=== PATIENT | male | born 1950 | race Caucasian/White ===

== ENCOUNTER 2024-06-15 01:38 | Inpatient (IN) | payer MEDICARE, MEDICAID ==
[~2024-06-15] VITALS: Ht 177.8 cm; Wt 74.4 kg
[2024-06-15] VITALS (7 sets, daily range): BP systolic 115–139; BP diastolic 67–68; PULSE 91–111; RESP 13–18; TEMP 98.2–98.5; O2SAT 93–95
[~2024-06-15 01:38] MED LIST: ATOR20TA50 PO; DULO1CAP6 PO; FURO20TA4 PO; METO25TA93 PO; OMEP20TA69 PO
--- NOTE | 2024-06-15 02:05 | ED.PDOC ---
GI ASSESSMENT HPI Comments 73-year-old male who came to ER via EMS for abdominal pain. Patient does have history of diabetes. Patient states that he having lower abdominal pain, he is constipated, last bowel movement was over 2 days ago. Also complaining of inability to urinate. No laxatives taken. Lower abdominal pain in inability to pass stools prompted patient to come to the emergency room. Chief Complaint: Abdominal Pain Time Seen by MD: 02:05 Primary Care Provider: CRISTÓBAL Edwards Notes: Nurses Notes Allergies: Coded Allergies: Clindamycin (Unverified Allergy, Unknown, 07/27/23) Sulfamethoxazole w/Trimethoprim (Unverified Allergy, Unknown, 07/27/23) Vancomycin (Unverified Allergy, Unknown, 07/27/23) Home Meds Reported Medications Omeprazole (Gnp Omeprazole) 20 Mg Tab, 40 TAB PO DAILY 07/27/23 Duloxetine HCl (Duloxetine HCl) 60 Mg Cap, 1 CAP PO DAILY 07/27/23 Atorvastatin Calcium (ATORVASTATIN CALCIUM) 20 Mg Tab, 1 TAB PO DAILY 07/27/23 Furosemide (Furosemide) 20 Mg Tab, 1 TAB PO DAILY 07/27/23 Metoprolol Succinate (Metoprolol Succinate Er) 25 Mg Tab, 1 TAB PO DAILY 07/27/23 Information Source: Patient, Emergency Med Personnel Mode of Arrival: EMS Timing: Days Duration: Since onset Prehospital treatment: None Quality: Aching Vomitus: None Stool: Impaction Severity: Moderate Recent: None Recent Hx of: None Pain Location: Suprapubic Associated sign and symptoms: Constipation, Abdominal Pain Past Medical History PAST MEDICAL HISTORY: CHF, DM Surgical History: AKA Surgical History (Other): Left foot amputation Family History Family History: Reviewed,noncontributory to illness Social History Smoker: Non-Smoker Alcohol: Denies ETOH Use Drugs: Denies Drug Use Lives In: Home Constitutional: denies: chills, diaphoresis, fatigue, fever, malaise, sweats, weakness, others EENTM: denies: blurred vision, double vision, ear bleeding, ear discharge, ear drainage, ear pain, ear ringing, eye pain, eye redness, hearing loss, mouth pain, mouth swelling, nasal discharge, nose bleeding, nose congestion, nose pain, photophobia, tearing, throat pain, throat swelling, voice changes, others Respiratory: denies: cough, hemoptysis, orthopnea, SOB at rest, shortness of breath, SOB with excertion, stridor, wheezing, others Cardiovascular: denies: chest pain, dizzy spells, diaphoresis, Dyspnea on exertion, edema, irregular heart beat, left arm pain, lightheadedness, palpitations, PND, syncope, others Gastrointestinal: reports: abdominal pain, constipated; denies: abdomen distended, blood streaked bowels, diarrhea, dysphagia, difficulty swallowing, hematemesis, melena, nausea, poor appetite, poor fluid intake, rectal bleeding, rectal pain, vomiting, others Genitourinary: denies: burning, dysuria, flank pain, frequency, hematuria, incontinence, penile discharge, penile sore, pain, testicle pain, testicle swelling, urgency, others Neurological: denies: dizziness, fainting, headache, left sided numbness, left sided weakness, numbness, paresthesia, pre-existing deficit, right sided numbness, right sided weakness, seizure, speech problems, tingling, tremors, weakness, others Musculoskeletal: denies: back pain, gout, joint pain, joint swelling, muscle pain, muscle stiffness, neck pain, others Integumetry: denies: bruises, change in color, change in hair/nails, dryness, laceration, lesions, lumps, rash, wounds, others Allergic/Immunocompromised: denies: Difficulty Healing, Frequent Infections, Hives, Itching, others Hematologic/Lymphatic: denies: anemia, blood clots, easy bleeding, easy bruising, swollen glands, others Endocrine: denies: excessive hunger, excessive sweating, excessive thirst, excessive urination, flushing, intolerance to cold, intolerance to heat, unexplained weight gain, unexplained weight loss, others Psychiatric: denies: anxiety, bipolar disorder, depression, hopeless, panic disorder, schizophrenia, sleepless, suicidal, others Physical Exam General Appearance: No Apparent Distress, Normal HEENT: Normal ENT Inspection, Pharynx Normal, TMs Normal Neck: Full Range of Motion, Non-Tender, Normal, Normal Inspection Respiratory: Chest Non-Tender, Lungs Clear, No Accessory Muscle Use, No Respiratory Distress, Normal Breath Sounds Cardiovascular: No Edema, No JVD, No Murmur, No Gallop, Normal Peripheral Pulses, Regular Rate/Rhythm Breast Exam: Deferred Gastrointestinal: No Organomegaly, No Pulsatile Mass, Normal Bowel Sounds, Soft, Suprapubic, Tenderness Genitalia: Deferred Pelvic: Deferred Rectal: Deferred Extremities: No calf tenderness, Normal capillary refill, Normal inspection, Normal range of motion, Non-tender, No pedal edema Musculoskeletal : Apperance: Normal Neurologic: Alert, instructional consultant II-XII nml as Tested, No Motor Deficits, Normal Affect, Normal Mood, No Sensory Deficits Cerebellar Function: Normal Reflexes: Normal Skin: Dry, Normal Color, Warm Lymphatic: No Adenopathy Was a procedure done? Was a procedure done?: No GI differential Dx Differential Diagnosis: Cholecystitis, Constipation, Diverticular disease, Gastritis/PUD, Gastroenteritis, Pancreatitis, Urinary Obstruction, UTI, Urolithiasis, Dehydration, Impaction X-Ray, Labs, Meds, VS Vital Signs Date Time Temp Pulse Resp B/P (MAP) Pulse Ox O2 Delivery O2 Flow Rate FiO2 06/15/24 03:29 98.0 94 18 127/61 (83) 96 98.0 06/15/24 01:38 98.2 104 18 141/81 (101) 97 Lab Test 06/15/24 02:03 Range/Units Urine Color Light-yellow Yellow Urine Clarity Turbid H Clear Urine pH 5.5 5.0-9.0 Urine Specific [place] 1.017 1.001-1.035 Urine Protein Trace H Negative Urine Ketones Negative Negative Urine Blood 1+ H Negative /uL Urine Nitrite Negative Negative Urine Bilirubin Negative Negative Urine Urobilinogen Normal Negative mg/dL Urine Leukocyte Esterase 3+ Negative /uL Urine RBC 3 0 - 3 /hpf Urine WBC 508 0 - 3 /hpf Urine Squamous Epithelial Cells None seen <5 /hpf Urine Bacteria None seen None Seen /hpf Urine Glucose 1+ H Normal mg/dL Current Medications Medications (Trade) Dose Ordered Sig/Braeden Route Start Time Stop Time Status Last Admin Sodium Biphosphate/ Sodium Phosphate 135 ml ONCE ONCE MO 06/15/24 03:45 06/15/24 03:46 DC 06/15/24 04:02 Time of 1ST Reevaluation: 02:01 Reevaluation 1ST: Unchanged Patient Education/Counseling: Diagnosis, Treatment Family Education/Counseling: No Family Present Departure 1 Departure Time of Disposition: 04:06 (Patient with acute urinary retention and an infection. We will admit patient for IV antibiotics and further workup) Impression: Primary Impression: Urinary tract infection Qualified Codes: N30.01 - Acute cystitis with hematuria Additional Impressions: Acute urinary retention Constipation Qualified Codes: K59.09 - Other constipation Abdominal pain Qualified Codes: R10.84 - Generalized abdominal pain Disposition: ADMITTED INPATIENT Admit to: Med Surg Condition: Serious Critical Care Note Critical Care Time?: Yes (35 min-critical care time only) Stability Stability form required: No Heart Score Heart Score: Heart Score Response (Comments) Value History N/A 0 EKG N/A 0 Age N/A 0 Risk Factors N/A 0 Troponin N/A 0 Total 0 I personally scribed for SUE SHAW MD ([email or web address]) on 06/15/24 at 02:05. Electronically submitted by Trevin Hart ([email or web address]). SUE SHAW MD Jun 15, 2024 02:05
[2024-06-15 02:57] LABS: Urine Bacteria None Seen /hpf (None Seen)
[2024-06-15 03:21] LABS: Urine Blood 1+ /uL (Negative); Urine Clarity Turbid (Clear); Urine Color Light-Yellow (Yellow); Urine Protein, UAD TRACE (Negative); Urine Specific Gravity 1.017 (1.001-1.035); Urine Urobilinogen Normal (Negative); Urine WBC 508 /hpf (0 - 3); Urine pH 5.5 (5.0-9.0)
[2024-06-15] MEDS: FLEET ENEMA(ADULT) 135 ML PR ONE (04:02)
[2024-06-15 04:56] LABS: Basophils # (auto) 0.1 10 ^3/uL (0-0.2); Basophils % (auto) 0.6 % (0.0-2.0); Eosinophils # (auto) 0.2 10 ^3/uL (0-0.8); Eosinophils % (auto) 1.3 % (0.0-7.0); Hematocrit 33.4 % (41.0-53.0); Hemoglobin 11.2 g/dL (13.5-17.5); Lymphocytes # (auto) 2.2 10 ^3/uL (0.4-5.4); Lymphocytes % (auto) 14.5 % (10.0-50.0); Mean Corpuscular Hgb Conc. 33.6 g/dL (32.0-36.0); Mean Corpuscular Volume 77.4 fL (80.0-100.0); Monocytes % (auto) 6.4 % (0.0-12.0); Neutrophils # (auto) 11.6 10 ^3/uL (1.6-8.6); Neutrophils % (auto) 77.2 % (37.0-80.0); Nucleated Red Blood Cells % 0.3 %; Platelet Count (auto) 197 10^3/uL (140-450); Red Blood Cells 4.31 10^6/uL (4.5-5.90); Red Cell Distribution Width 19.2 % (11.8-14.3)
[2024-06-15] MEDS: CEFEPIME 2GM/50ML NS 50 ML IV ONE (05:14)
[2024-06-15 05:31] LABS: Chloride 107 mmol/L (98-107); Potassium 4.6 mmol/L (3.5-5.1); Sodium 139 mmol/L (136-145)
[2024-06-15 05:32] LABS: Anion Gap 10 (5-15); Carbon Dioxide 22 mmol/L (20-31)
[2024-06-15 05:37] LABS: Blood Urea Nitrogen 54 mg/dL (9-23); Glucose 165 mg/dL (74-106)
--- NOTE | 2024-06-15 06:22 | DVHHP2 ---
History of Present Illness Reason for Visit: Urinary tract infection History of Present Illness The patient is a 73-year-old male with past medical history of CHF and diabetes mellitus who presented to [facility] ED with complaint of abdominal pain. Patient reports symptoms progressively get worse with lower abdominal pain, unable to have bowel movement over the past 2 days, and inability to urinate, getting worse today that prompted this visit. Patient was seen and evaluated in the ED, laboratory data shows elevated WBC 15 0, platelets 197, sodium 139, potassium 4.6, BUN 54, creatinine 1.15, GFR 67, glucose 165. Urinalysis positive for urinary tract infection. Patient was started on IV ant ibiotic regimen cefepime, please see medication orders section in the computer. On my assessment, patient denied chest pain, no headache, no dizziness, no diaphoresis, no shortness of breath, no nausea, vomiting, no fever, no chills. Patient was admitted for further evaluation and medical management. Past Medical History CHF, DM Past Surgical History Right AKA, Left foot amputation Family History Reviewed, noncontributory to the management of this case. Past Social History The patient lives at home, denies smoking, alcohol or illicit drugs abuse. Review of Systems Constitutional: No: Fever, Chills, Sweats, Weakness, Malaise, Other Eyes: No: Pain, Vision change, Conjunctivae inflammation, Eyelid inflammation, Other, Redness ENT: No: Ear pain, Ear discharge, Nose pain, Nose discharge, Nose congestion, Mouth pain, Mouth swelling, Throat pain, Throat swelling, Other Respiratory: No: Cough, Dry, Shortness of breath, SOB with excertion, Wheezing, Hemoptysis, Pleuritic Pain, Sputum, Wheezing, Other Cardiovascular: No: Chest Pain, Palpitations, Orthopnea, Paroxysmal Noc. Dyspnea, Edema, Lt Headedness, Other Gastrointestinal: Abdominal Pain, Constipation; No: Nausea, Vomiting, Diarrhea, Melena, Hematochezia, Other Genitourinary: No Dysuria, No Frequency, No Incontinence, No Hematuria; Retention, Other (Ohara catheter in place) Musculoskeletal: No: other, neck pain, shoulder pain, arm pain, back pain, hand pain, leg pain, foot pain Skin: No: Rash, Lesions, Jaundice, Bruising, Other Neurological: No: Weakness, Numbness, Incoordination, Change in speech, Confusion, Seizures, Other Allergies: Coded Allergies: Clindamycin (Unverified Allergy, Unknown, 07/27/23) Sulfamethoxazole w/Trimethoprim (Unverified Allergy, Unknown, 07/27/23) Vancomycin (Unverified Allergy, Unknown, 07/27/23) Exam Vital Signs Vital Signs Date Time Temp Pulse Resp B/P (MAP) Pulse Ox O2 Delivery O2 Flow Rate FiO2 06/15/24 03:29 98.0 94 18 127/61 (83) 96 98.0 General Appearance: Alert, Oriented X3, Cooperative, No acute distress HEENT: Atraumatic, PERRLA, EOMI, Mucous membr. moist/pink Respiratory: Clear to auscultation, Normal air movement Cardiovascular: Regular rate, Normal S1, Normal S2, No murmurs Abdominal: Normal bowel sounds, Soft, No tenderness, No hepatospenomegaly, No masses Extremities: No clubbing, No cyanosis, No edema, Normal pulses, No tenderness/swelling, Other (Right BKA, left toes amputation.) Skin: No rashes, No breakdown, No significant lesion Neuro: Normal speech, Normal tone, Sensation intact, Cranial nerves 3-12 NL, Reflexes 2+, Other (Generalized weakness) Psych/Mental Status: Mental status NL, Mood NL Labs/Xrays Labs Test 06/15/24 03:59 06/15/24 02:03 Range/Units White Blood Count 15.0 H 4.4-10.8 10^3/uL Red Blood Count 4.31 L 4.5-5.90 10^6/uL Hemoglobin 11.2 L 13.5-17.5 g/dL Hematocrit 33.4 L 41.0-53.0 % Mean Corpuscular Volume 77.4 L 80.0-100.0 fL Mean Corpuscular Hemoglobin 26.0 L 28.0-32.0 pg Mean Corpuscular Hemoglobin Concent 33.6 32.0-36.0 g/dL Red Cell Distribution Width 19.2 H 11.8-14.3 % Platelet Count 197 140-450 10^3/uL Mean Platelet Volume 7.9 6.9-10.8 fL Neutrophils (%) (Auto) 77.2 37.0-80.0 % Lymphocytes (%) (Auto) 14.5 10.0-50.0 % Monocytes (%) (Auto) 6.4 0.0-12.0 % Eosinophils (%) (Auto) 1.3 0.0-7.0 % Basophils (%) (Auto) 0.6 0.0-2.0 % Neutrophils # (Auto) 11.6 H 1.6-8.6 10 ^3/uL Lymphocytes # (Auto) 2.2 0.4-5.4 10 ^3/uL Monocytes # (Auto) 1.0 0-1.3 10 ^3/uL Eosinophils # (Auto) 0.2 0-0.8 10 ^3/uL Basophils # (Auto) 0.1 0-0.2 10 ^3/uL Nucleated Red Blood Cells 0.3 % Sodium Level 139 136-145 mmol/L Potassium Level 4.6 3.5-5.1 mmol/L Chloride Level 107 98-107 mmol/L Carbon Dioxide Level 22 20-31 mmol/L Anion Gap 10 5-15 Blood Urea Nitrogen 54 H 9-23 mg/dL Creatinine 1.15 0.700-1.30 mg/dL Glomerular Filtration Rate Calc 67 >90 mL/min BUN/Creatinine Ratio 47.0 H 10.0-20.0 Serum Glucose 165 H 74-106 mg/dL Calcium Level 9.0 8.7-10.4 mg/dL Urine Color Light-yellow Yellow Urine Clarity Turbid H Clear Urine pH 5.5 5.0-9.0 Urine Specific [place] 1.017 1.001-1.035 Urine Protein Trace H Negative Urine Ketones Negative Negative Urine Blood 1+ H Negative /uL Urine Nitrite Negative Negative Urine Bilirubin Negative Negative Urine Urobilinogen Normal Negative mg/dL Urine Leukocyte Esterase 3+ Negative /uL Urine RBC 3 0 - 3 /hpf Urine WBC 508 0 - 3 /hpf Urine Squamous Epithelial Cells None seen <5 /hpf Urine Bacteria None seen None Seen /hpf Urine Glucose 1+ H Normal mg/dL Assessment/Plan Assessment/Plan Urinary tract infection Acute cystitis with hematuria Acute urinary retention Constipation Leukocytosis, unspecified Lower abdominal pain Generalized abdominal pain Diabetes mellitus with hyperglycemia Plan 1. Admit to med surge unit 2. Breathing treatment 3. Pain control management 4. IV antibiotic management 5. Management of fluids and electrolytes 6. Consultation for hospitalist 7. Diagnostic test chest x-ray 8. DVT prophylaxis-on SCDs 9. Repeat labs CBC, CMP in a.m. 10. Home medication reviewed and reconciled 11. Continue with current medical management 12. Treatment plan discussed with patient and RN. Patient verbalized understanding. Plan discussed with: Patient, Other (RN) Problem List: (1) Urinary tract infection (2) Generalized abdominal pain (3) Leukocytosis, unspecified (4) Lower abdominal pain (5) Constipation (6) Acute urinary retention (7) Diabetes mellitus with hyperglycemia (8) Acute cystitis with hematuria Date of Service: Jun 15, 2024 Billing Provider: TJ ABDI DNP Common Visit Codes: [id number] INP/OBS CARE (HIGH) TJ ABDI DNP Jun 15, 2024 06:22
[2024-06-15] MEDS ORDERED: ONDANSETRON HCL 4 MG/2 ML VIAL IV PRN (06:30)
[2024-06-15] MEDS ORDERED: DOCUSATE SOD 100 MG CAP PO PRN (06:30)
[2024-06-15] MEDS ORDERED: NITROGLYCERIN 0.4 MG SL TAB SL PRN (06:30)
[2024-06-15] MEDS ORDERED: MORPHINE SULFATE INJ 2 MG/ml SYRG IV PRN (06:30)
[2024-06-15] MEDS ORDERED: DEXTROSE (50%) 50ML SYRG IV PRN (06:30)
[2024-06-15] MEDS ORDERED: HYDROcodone-ACET 5/325MG TAB PO PRN (06:30)
[2024-06-15] MEDS: ACCU-CHEK COMFORT CURVE STRIP VI SCH (07:00)
--- NOTE | 2024-06-15 07:10 | ECG ---
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
[2024-06-15] MEDS: InsuLIN REG 1unit/0.01ml Soln (100units/ml) SC SCH ×2 (07:26→22:13)
[2024-06-15] MEDS: SODIUM CHLOR 0.9% PF (SALINE LOCK) 10ML VIAL/SYR IV SCH (14:05)
[2024-06-15] MEDS ORDERED: INSLANTI SC (18:58)
[2024-06-15] MEDS ORDERED: PANT40T PO (18:58)
[2024-06-15] MEDS ORDERED: ASPI-325 PO (18:58)
[2024-06-15] MEDS: CEFEPIME 1GM/ 50ML 50 ML IV SCH (21:56)
[2024-06-16] VITALS (8 sets, daily range): BP systolic 90–110; BP diastolic 47–61; PULSE 69–94; RESP 18–20; TEMP 97.8–98.7; O2SAT 92–95
[2024-06-16 05:11] LABS: Basophils # (auto) 0.1 10 ^3/uL (0-0.2); Mean Corpuscular Hgb Conc. 33.4 g/dL (32.0-36.0); Monocytes # (auto) 0.9 10 ^3/uL (0-1.3); Nucleated Red Blood Cells % 0.1 %
[2024-06-16 05:16] LABS: Basophils % (auto) 0.7 % (0.0-2.0); Eosinophils # (auto) 0.3 10 ^3/uL (0-0.8); Eosinophils % (auto) 2.3 % (0.0-7.0); Hematocrit 31.6 % (41.0-53.0); Hemoglobin 10.6 g/dL (13.5-17.5); Lymphocytes # (auto) 2.7 10 ^3/uL (0.4-5.4); Mean Corpuscular Hemoglobin 26.1 pg (28.0-32.0); Mean Corpuscular Volume 78.1 fL (80.0-100.0); Monocytes % (auto) 7.1 % (0.0-12.0); Neutrophils # (auto) 8.2 10 ^3/uL (1.6-8.6); Neutrophils % (auto) 67.9 % (37.0-80.0); Platelet Count (auto) 203 10^3/uL (140-450); Red Blood Cells 4.05 10^6/uL (4.5-5.90); Red Cell Distribution Width 19.7 % (11.8-14.3); White Blood Cell 12.1 10^3/uL (4.4-10.8)
[2024-06-16 05:23] LABS: Alanine Aminotransferase 28 U/L (7-40); Alkaline Phosphatase 111 U/L (46-116); Calcium 8.8 mg/dL (8.7-10.4)
[2024-06-16 05:24] LABS: Albumin 3.5 g/dL (3.2-4.8); Anion Gap 9 (5-15); Aspartate Aminotransferase 19 U/L (13-40); BUN/Creatinine Ratio 31.1 (10.0-20.0); Bilirubin, Total 0.3 mg/dL (0.2-1.0); Blood Urea Nitrogen 38 mg/dL (9-23); Carbon Dioxide 22 mmol/L (20-31); Chloride 109 mmol/L (98-107); Glucose 105 mg/dL (74-106); Potassium 3.6 mmol/L (3.5-5.1); Sodium 140 mmol/L (136-145); Total Protein 8.3 g/dL (5.7-8.2)
[2024-06-16] MEDS: ACETAMINOPHEN 325 MG TAB PO PRN (10:31)
--- NOTE | 2024-06-16 19:22 | DVHPN2 ---
Subjective looks rested/denies any prostate issues or h/o uti in past Changes from previous H/P or p: No Changes Eyes: No Pain, No Vision change, No Conjunctivae inflammation, No Eyelid inflammation, No Other, No Redness ENT: No Ear pain, No Ear discharge, No Nose pain, No Nose discharge, No Nose congestion, No Mouth pain, No Mouth swelling, No Throat pain, No Throat swelling, No Other Cardiovascular: No Chest Pain, No Palpitations, No Orthopnea, No Paroxysmal Noc. Dyspnea, No Edema, No Lt Headedness, No Other Respiratory: No Cough, No Dry, No Shortness of breath, No SOB with excertion, No Wheezing, No Hemoptysis, No Pleuritic Pain, No Sputum, No Other Gastrointestinal: No Nausea, No Vomiting; Abdominal Pain; No Diarrhea; C onstipation; No Melena, No Hematochezia, No Other Genitourinary: No Dysuria, No Frequency, No Incontinence, No Hematuria; R etention, Other (Ohara catheter in place) Musculoskeletal: No other, No neck pain, No shoulder pain, No arm pain, No back pain, No hand pain, No leg pain, No foot pain Skin: No Rash, No Lesions, No Jaundice, No Bruising, No Other Objective Vitals Vital Signs Date Time Temp Pulse Resp B/P (MAP) Pulse Ox O2 Delivery O2 Flow Rate FiO2 06/16/24 17:00 98.0 69 18 106/54 (71) 95 98.0 06/16/24 08:00 Room Air* 0 21 Intake/Output Intake and Output 06/16/24 07:00 Intake Total 1450 ml Output Total 2202 ml Balance -752 ml Intake Oral 1400 ml IV Total 50 ml Output Urine Total 2200 ml Stool Total 2 ml # Voids 2 # Bowel Movements 4 General Appearance: Alert, Oriented X3, Cooperative, No acute distress Lungs: Clear to auscultation Cardiovascular: Regular rate, Normal S1, Normal S2, No murmurs Abdomen: Normal bowel sounds, Soft, No tenderness, No hepatospenomegaly Musculoskeletal: Normal sensory function, Other (rt side aka/lt side -tmta) Neuro: Normal gait, Normal speech Medications Current Medications Medications Dose Ordered Sig/Braeden Route Start Time Stop Time Status Last Admin Dose Admin Cefepime HCl 50 ml @ 12.5 mls/hr Q12HR IV 06/15/24 22:00 06/16/24 10:29 12.5 MLS/HR Diagnostic Test (Pha) 1 strip ACHS 06/15/24 07:00 06/16/24 16:34 1 STRIP Insulin Human Regular HS SC 06/15/24 22:00 06/15/24 22:13 6 UNITS Insulin Human Regular AC SC 06/15/24 07:00 06/16/24 12:44 2 UNITS Dextrose 50 ml UD PRN IV 06/15/24 06:30 Sodium Chloride 10 ml Q8HR IV 06/15/24 14:00 06/16/24 16:32 10 ML Docusate Sodium 100 mg BIDPRN PRN PO 06/15/24 06:30 Acetaminophen 650 mg Q6HP PRN PO 06/15/24 06:30 06/16/24 17:21 650 MG Linezolid 300 ml @ 150 mls/hr Q12HR IV 06/16/24 19:00 Laboratory Results Laboratory Tests 06/16/24 04:21 Chemistry Test 06/16/24 04:21 Albumin 3.5 g/dL (3.2-4.8) Calcium Level 8.8 mg/dL (8.7-10.4) Total Protein 8.3 g/dL (5.7-8.2) H LFT Test 06/16/24 04:21 Alanine Aminotransferase (ALT) 28 U/L (7-40) Alkaline Phosphatase 111 U/L (46-116) Aspartate Amino Transferase (AST) 19 U/L (13-40) Total Bilirubin 0.3 mg/dL (0.2-1.0) Urinalysis Test 06/15/24 02:03 Urine Color Light-yellow (Yellow) Urine Clarity Turbid (Clear) H Urine pH 5.5 (5.0-9.0) Urine Specific [place] 1.017 (1.001-1.035) Urine Protein Trace (Negative) H Urine Ketones Negative (Negative) Urine Blood 1+ /uL (Negative) H Urine Nitrite Negative (Negative) Urine Bilirubin Negative (Negative) Urine Urobilinogen Normal mg/dL (Negative) Urine Leukocyte Esterase 3+ /uL (Negative) Urine RBC 3 /hpf (0 - 3) Urine WBC 508 /hpf (0 - 3) Urine Squamous Epithelial Cells None seen /hpf (<5) Urine Bacteria None seen /hpf (None Seen) Urine Glucose 1+ mg/dL (Normal) H Microbiology Microbiology Date/Time Source Procedure Growth Status 06/15/24 09:51 Blood Blood Culture - Preliminary NO GROWTH AFTER 24 HOURS OF INCUBATION. Resulted 06/15/24 02:03 Voided Urine Urine Culture - Preliminary Resulted Labs and/or images reviewed: Labs reviewed by me, Image(s) reviewed by me Assessment/Plan Assessment/Plan staph uti/complicated uti- awaiting sensitivity treat ?bph add flomax constipation resolved rt akalt transmetatarsal amputation- f/by /has weekly appt dm stable amemia- stable/no active bleeding Plan discussed with: Patient, Other My Orders Orders - MIGUEL A MARY MD Procedure Category Date Status Time Linezolid 600mg/300ml PHA 06/16/24 In Process (Zyvox) 19:00 Date of Service: Jun 16, 2024 Billing Provider: MIGUEL A MARY MD Common Visit Codes: [id number] INP/OBS CARE(MOD) MIGUEL A MARY MD Jun 16, 2024 19:22
[2024-06-16] MEDS: LINEZOLID 600MG/300ML 300 ML IV SCH (21:07)
[2024-06-17] VITALS (7 sets, daily range): BP systolic 104–124; BP diastolic 55–70; PULSE 68–77; RESP 17–20; TEMP 97.5–98.4; O2SAT 91–96
[2024-06-17 06:34] LABS: Basophils # (auto) 0.1 10 ^3/uL (0-0.2); Eosinophils # (auto) 0.5 10 ^3/uL (0-0.8); Hemoglobin 10.9 g/dL (13.5-17.5); Monocytes # (auto) 0.7 10 ^3/uL (0-1.3); Nucleated Red Blood Cells % 0.1 %; White Blood Cell 9.7 10^3/uL (4.4-10.8)
[2024-06-17 06:37] LABS: Basophils % (auto) 0.9 % (0.0-2.0); Eosinophils % (auto) 5.1 % (0.0-7.0); Hematocrit 32.6 % (41.0-53.0); Lymphocytes % (auto) 31.4 % (10.0-50.0); Mean Corpuscular Hemoglobin 26.5 pg (28.0-32.0); Mean Corpuscular Hgb Conc. 33.5 g/dL (32.0-36.0); Monocytes % (auto) 7.4 % (0.0-12.0); Neutrophils # (auto) 5.3 10 ^3/uL (1.6-8.6); Neutrophils % (auto) 55.2 % (37.0-80.0); Platelet Count (auto) 212 10^3/uL (140-450); Red Blood Cells 4.13 10^6/uL (4.5-5.90); Red Cell Distribution Width 19.7 % (11.8-14.3)
--- NOTE | 2024-06-17 11:28 | DVHPN2 ---
Subjective 73-year-old male with a history of diabetes and heart failure, comes with chief complaint of abdominal pain and urinary retention where he says he could not urinate or have a bowel movement Here had a Ohara catheter inserted and a UA in the urine culture showed UTI with Staph aureus MRSA He has a chronic wound on his left leg, he goes to Dr. Ghosh, he has a left foot partial amputation, he has a right [id number] amputation Changes from previous H/P or p: Changes Eyes: No Pain, No Vision change, No Conjunctivae inflammation, No Eyelid inflammation, No Other, No Redness ENT: No Ear pain, No Ear discharge, No Nose pain, No Nose discharge, No Nose congestion, No Mouth pain, No Mouth swelling, No Throat pain, No Throat swelling, No Other Cardiovascular: No Chest Pain, No Palpitations, No Orthopnea, No Paroxysmal Noc. Dyspnea, No Edema, No Lt Headedness, No Other Respiratory: No Cough, No Dry, No Shortness of breath, No SOB with excertion, No Wheezing, No Hemoptysis, No Pleuritic Pain, No Sputum, No Other Gastrointestinal: No Nausea, No Vomiting; Abdominal Pain; No Diarrhea; C onstipation; No Melena, No Hematochezia, No Other Genitourinary: No Dysuria, No Frequency, No Incontinence, No Hematuria; R etention, Other (Ohara catheter in place) Musculoskeletal: No other, No neck pain, No shoulder pain, No arm pain, No back pain, No hand pain, No leg pain, No foot pain Skin: No Rash, No Lesions, No Jaundice, No Bruising, No Other Objective Vitals Vital Signs Date Time Temp Pulse Resp B/P (MAP) Pulse Ox O2 Delivery O2 Flow Rate FiO2 06/17/24 09:00 97.9 76 18 114/66 (82) 91 97.9 06/17/24 08:00 Room Air* 0 21 Intake/Output Intake and Output 06/17/24 07:00 Intake Total 1400 ml Output Total 1150 ml Balance 250 ml Intake Oral 1000 ml IV Total 400 ml Output Urine Total 1150 ml # Bowel Movements 2 General Appearance: Alert, Oriented X3, Cooperative, No acute distress Lungs: Clear to auscultation Cardiovascular: Regular rate, Normal S1, Normal S2, No murmurs Abdomen: Normal bowel sounds, Soft, No tenderness, No hepatospenomegaly Musculoskeletal: Normal sensory function, Other (rt side aka/lt side -tmta) Neuro: Normal gait, Normal speech Medications Current Medications Medications Dose Ordered Sig/Braeden Route Start Time Stop Time Status Last Admin Dose Admin Cefepime HCl 50 ml @ 12.5 mls/hr Q12HR IV 06/15/24 22:00 06/17/24 10:24 12.5 MLS/HR Diagnostic Test (Pha) 1 strip ACHS 06/15/24 07:00 06/17/24 11:22 1 STRIP Insulin Human Regular HS SC 06/15/24 22:00 06/16/24 22:37 4 UNITS Insulin Human Regular AC SC 06/15/24 07:00 06/16/24 12:44 2 UNITS Dextrose 50 ml UD PRN IV 06/15/24 06:30 Sodium Chloride 10 ml Q8HR IV 06/15/24 14:00 06/17/24 06:15 10 ML Docusate Sodium 100 mg BIDPRN PRN PO 06/15/24 06:30 Acetaminophen 650 mg Q6HP PRN PO 06/15/24 06:30 06/16/24 17:21 650 MG Linezolid 300 ml @ 150 mls/hr Q12HR IV 06/16/24 19:00 06/17/24 10:25 150 MLS/HR Laboratory Results Laboratory Tests 06/16/24 04:21 06/17/24 05:27 Urinalysis Test 06/15/24 02:03 Urine Color Light-yellow (Yellow) Urine Clarity Turbid (Clear) H Urine pH 5.5 (5.0-9.0) Urine Specific [place] 1.017 (1.001-1.035) Urine Protein Trace (Negative) H Urine Ketones Negative (Negative) Urine Blood 1+ /uL (Negative) H Urine Nitrite Negative (Negative) Urine Bilirubin Negative (Negative) Urine Urobilinogen Normal mg/dL (Negative) Urine Leukocyte Esterase 3+ /uL (Negative) Urine RBC 3 /hpf (0 - 3) Urine WBC 508 /hpf (0 - 3) Urine Squamous Epithelial Cells None seen /hpf (<5) Urine Bacteria None seen /hpf (None Seen) Urine Glucose 1+ mg/dL (Normal) H Microbiology Microbiology Date/Time Source Procedure Growth Status 06/15/24 09:51 Blood Blood Culture - Preliminary NO GROWTH AFTER 48 HOURS OF INCUBATION. 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 Ghosh Plan discussed with: Patient Date of Service: Jun 17, 2024 Billing Provider: DONNELL LARA MD Common Visit Codes: [id number] INP/OBS CARE(HIGH) Secondary Visit Codes: [id number] CARE PLAN 30 MINUTES DONNELL LARA MD Jun 17, 2024 11:28
[2024-06-17] MEDS ORDERED: ONDANSETRON HCL 4 MG/2 ML VIAL IV PRN (11:45)
[2024-06-17] MEDS: ASPirin 81 mg TAB PO ONE (12:00)
[2024-06-17] MEDS: PANTOPRAZOLE 40 MG TAB PO ONE (12:00)
[2024-06-17] MEDS: DULoxetine HCL 30 MG CAP PO ONE (12:01)
--- NOTE | 2024-06-17 15:42 | DVHSR ---
APPROVED REPORT EXAM: Two-dimensional and M-mode echocardiogram with Doppler and color Doppler. Blood Pressure: 114/66 mmHg INDICATION Sepsis RISK FACTORS Height: 5'10", Weight: 160 DIMENSIONS LVDd5.3 (3.8-5.7cm)LA (2D)3.6 (1.9-4.0cm)Aortic Root3.3 (2.0-3.7cm) LVDs4.1 (2.5-4.0cm)LA (MM) (1.9-4.0cm)Aortic Cusp Exc0.9 (1.5-2.0cm) EF (%) 45.0 (55-70%)Rt. Atrium (1.9-4.0cm)Asc. Aorta cm IVSd1.0 (0.7-1.1cm)RV (D) (1.8-2.4cm) PWd0.9 (0.7-1.1cm) Mitral Valve MitralMitral Stenosis E wave0.46m/sMV Mean GR.mmHg A wave0.72m/sMV Peak GR.mmHg E/A ratio0.62D MVAcm2 DECEL [id number] 1/2 Timems Aortic Valve Aortic ValveAortic Stenosis V10.67m/Naz Mean GR.4mmHg V21.25m/Naz Peak GR.6mmHg LVOT Diameter2.0 (1.8-2.4cm)Doppler AVA1.68cm2 2D AVA1.89cm2 Tricuspid Valve TR Velocity1.20m/s [id number] Other Information Quality : Technically LimitedRhythm : Technically limited study due to body habitus. Conclusion Normal left ventricular size and dimension. Mildly reduced left ventricular systolic function estima gloria ejection fraction 45% in a global fashion.. There is a grade 1 diastolic dysfunction. Normal right ventricular size and dimension. Normal right ventricular systolic function. Normal biatrial size and dimension. Normal aortic valve structure and function with a mild aortic valve sclerosis and calcification. Normal mitral valve structure and function. Normal tricuspid valve structure and function. The pulmonary valve is grossly normal. No pericardial effusion.
[2024-06-17] MEDS: ATORVASTATIN 20 MG TAB PO SCH (21:24)
[2024-06-17] MEDS: INSULIN LANTUS (GLARGINE) 1 /0.01ml (100units/ml) SC SCH (22:21)
[2024-06-18 01:00] VITALS: BP 94/45; PULSE 75; RESP 18; TEMP 98.1; O2SAT 94
[2024-06-18] MEDS: CEFEPIME 1GM/ 50ML 50 ML IV SCH (01:30)
[2024-06-18 05:00] VITALS: BP 129/60; PULSE 77; RESP 18; TEMP 97.9; O2SAT 92
[2024-06-18] MEDS: PANTOPRAZOLE 40 MG TAB PO SCH (05:19)
[2024-06-18 09:00] VITALS: BP 101/57; PULSE 72; RESP 17; TEMP 97.7; O2SAT 95
[2024-06-18] MEDS: DULoxetine HCL 30 MG CAP PO SCH (10:23)
[2024-06-18] MEDS: ASPirin 81 mg TAB PO SCH (10:24)
--- NOTE | 2024-06-18 11:15 | DVHPN2 ---
Subjective No new complaints Changes from previous H/P or p: Changes Eyes: No Pain, No Vision change, No Conjunctivae inflammation, No Eyelid inflammation, No Other, No Redness ENT: No Ear pain, No Ear discharge, No Nose pain, No Nose discharge, No Nose congestion, No Mouth pain, No Mouth swelling, No Throat pain, No Throat swelling, No Other Cardiovascular: No Chest Pain, No Palpitations, No Orthopnea, No Paroxysmal Noc. Dyspnea, No Edema, No Lt Headedness, No Other Respiratory: No Cough, No Dry, No Shortness of breath, No SOB with excertion, No Wheezing, No Hemoptysis, No Pleuritic Pain, No Sputum, No Other Gastrointestinal: No Nausea, No Vomiting; Abdominal Pain; No Diarrhea; C onstipation; No Melena, No Hematochezia, No Other Genitourinary: No Dysuria, No Frequency, No Incontinence, No Hematuria; R etention, Other (Ohara catheter in place) Musculoskeletal: No other, No neck pain, No shoulder pain, No arm pain, No back pain, No hand pain, No leg pain, No foot pain Skin: No Rash, No Lesions, No Jaundice, No Bruising, No Other Objective Vitals Vital Signs Date Time Temp Pulse Resp B/P (MAP) Pulse Ox O2 Delivery O2 Flow Rate FiO2 06/18/24 09:00 97.7 72 17 101/57 (72) 95 97.7 06/18/24 08:00 Room Air* 0 21 Intake/Output Intake and Output 06/18/24 07:00 Intake Total 1624 ml Output Total 1100 ml Balance 524 ml Intake Oral 1274 ml IV Total 350 ml Output Urine Total 1100 ml # Voids 7 # Bowel Movements 2 General Appearance: Alert, Oriented X3, Cooperative, No acute distress Lungs: Clear to auscultation Cardiovascular: Regular rate, Normal S1, Normal S2, No murmurs Abdomen: Normal bowel sounds, Soft, No tenderness, No hepatospenomegaly Musculoskeletal: Normal sensory function, Other (rt side aka/lt side -tmta) Neuro: Normal gait, Normal speech Medications Current Medications Medications Dose Ordered Sig/Braeden Route Start Time Stop Time Status Last Admin Dose Admin Diagnostic Test (Pha) 1 strip ACHS 06/15/24 07:00 06/18/24 11:08 1 STRIP Insulin Human Regular HS SC 06/15/24 22:00 06/17/24 22:22 2 UNITS Insulin Human Regular AC SC 06/15/24 07:00 06/18/24 06:26 3 UNITS Dextrose 50 ml UD PRN IV 06/15/24 06:30 Sodium Chloride 10 ml Q8HR IV 06/15/24 14:00 06/18/24 05:19 10 ML Docusate Sodium 100 mg BIDPRN PRN PO 06/15/24 06:30 Acetaminophen 650 mg Q6HP PRN PO 06/15/24 06:30 06/16/24 17:21 650 MG Linezolid 300 ml @ 150 mls/hr Q12HR IV 06/16/24 19:00 06/18/24 10:24 150 MLS/HR Duloxetine HCl 60 mg DAILY PO 06/18/24 10:00 06/18/24 10:23 60 MG Insulin Glargine 20 units BID@0700,2200 SC 06/17/24 22:00 06/18/24 06:25 20 UNITS Ondansetron HCl 4 mg Q4HPRN PRN IV 06/17/24 11:45 Aspirin 81 mg DAILY PO 06/18/24 10:00 06/18/24 10:24 81 MG Pantoprazole Sodium 40 mg DAILY@0600 PO 06/18/24 06:00 06/18/24 05:19 40 MG Atorvastatin Calcium 20 mg HS PO 06/17/24 22:00 06/17/24 21:24 20 MG Cefepime HCl 50 ml @ 12.5 mls/hr Q12H IV 06/18/24 01:00 06/18/24 01:30 12.5 MLS/HR Laboratory Results Laboratory Tests 06/16/24 04:21 06/17/24 05:27 Urinalysis Test 06/15/24 02:03 Urine Color Light-yellow (Yellow) Urine Clarity Turbid (Clear) H Urine pH 5.5 (5.0-9.0) Urine Specific [place] 1.017 (1.001-1.035) Urine Protein Trace (Negative) H Urine Ketones Negative (Negative) Urine Blood 1+ /uL (Negative) H Urine Nitrite Negative (Negative) Urine Bilirubin Negative (Negative) Urine Urobilinogen Normal mg/dL (Negative) Urine Leukocyte Esterase 3+ /uL (Negative) Urine RBC 3 /hpf (0 - 3) Urine WBC 508 /hpf (0 - 3) Urine Squamous Epithelial Cells None seen /hpf (<5) Urine Bacteria None seen /hpf (None Seen) Urine Glucose 1+ mg/dL (Normal) H Microbiology Microbiology Date/Time Source Procedure Growth Status 06/15/24 09:51 Blood Blood Culture - Preliminary NO GROWTH AFTER 72 HOURS OF INCUBATION. 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 Ghosh 06/18/2024: Continue IV antibiotics cefepime and Zyvox for now Blood culture is negative so far Echocardiogram is negative for endocarditis Podiatry consult, Dr. Ghosh, saw the patient, recommends outpatient follow up Discharge planning for tomorrow Plan discussed with: Patient My Orders Orders - DONNELL LARA MD Procedure Category Date Status Time *Podiatry Consult Dr. WING 06/17/24 Transmitted Augie 11:17 Echo 2d Mode Cardiac US 06/17/24 Resulted DOP 11:31 Duloxetine Hcl PHA 06/18/24 In Process Capsule (Cymbalta 10:00 Insulin Lantus PHA 06/17/24 In Process (Glargine) (Lantus) 22:00 Ondansetron Hcl PHA 06/17/24 In Process (Zofran) 11:45 Aspirin Tablet PHA 06/18/24 In Process 10:00 Pantoprazole Tablet PHA 06/18/24 In Process (Protonix Tablet) 06:00 Atorvastatin (Lipitor) PHA 06/17/24 In Process 22:00 Cover Wound With Dry KENNY 06/17/24 In Process Dressing 11:40 Date of Service: Jun 18, 2024 Billing Provider: DONNELL LARA MD Common Visit Codes: [id number] INP/OBS CARE(HIGH) DONNELL LARA MD Jun 18, 2024 11:15
[2024-06-18 13:00] VITALS: BP 118/65; PULSE 66; RESP 18; TEMP 97.8; O2SAT 95
--- NOTE | 2024-06-18 13:45 | DVHINCON2 ---
Date of service: Jun 18, [address] 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 History of Present Illness The patient is a 73-year-old male with past medical history of CHF and diabetes mellitus who presented to [facility] ED with complaint of abdominal pain. I am very familiar with the patient as he is being treated for chronic non-healing ulceration to his left foot stump. The patient was admitted for an apparent UTI. The patient denies any new complaints. Past Medical History CHF DM II Past Surgical History Right BKA TMA left foot. Family History: Hypertension G8 FATHER Family History reviewed and is non-contributory to management of this case. Social History denies alcohol use denies tobacco use denies illicit drug use Allergies: Coded Allergies: Clindamycin (Unverified Allergy, Unknown, 07/27/23) Sulfamethoxazole w/Trimethoprim (Unverified Allergy, Unknown, 07/27/23) Vancomycin (Unverified Allergy, Unknown, 07/27/23) Home Meds Reported Medications Pantoprazole Sodium Sesquihydr (Pantoprazole Sodium) 40 Mg Tab, 1 TAB PO DAILY 06/15/24 Insulin Glargine (Lantus) 100 Unit/Ml Inj, 30 UNIT SC BID 06/15/24 Aspirin (Aspirin Low Dose) 81 Mg Tab, 1 TAB PO DAILY 06/15/24 Duloxetine HCl (Duloxetine HCl) 60 Mg Cap, 1 CAP PO DAILY 07/27/23 Atorvastatin Calcium (ATORVASTATIN CALCIUM) 20 Mg Tab, 1 TAB PO DAILY 07/27/23 Furosemide (Furosemide) 20 Mg Tab, 1 TAB PO DAILY 07/27/23 Current Medications Current Medications Medications (Trade) Dose Ordered Sig/Braeden Route PRN Reason Start Time Stop Time Status Last Admin Duloxetine HCl (Cymbalta Capsule) 60 mg DAILY PO 06/18/24 10:00 06/18/24 10:23 Insulin Glargine (Lantus) 20 units BID@0700,2200 SC 06/17/24 22:00 06/18/24 06:25 Aspirin 81 mg DAILY PO 06/18/24 10:00 06/18/24 10:24 Pantoprazole Sodium (Protonix Tablet) 40 mg DAILY@0600 PO 06/18/24 06:00 06/18/24 05:19 Atorvastatin Calcium (Lipitor) 20 mg HS PO 06/17/24 22:00 06/17/24 21:24 Cefepime HCl 50 ml @ 12.5 mls/hr Q12H IV 06/18/24 01:00 06/18/24 01:30 Review of Systems Constitutional: No: Fever, Chills, Sweats, Weakness, Malaise, Other Eyes: No: Pain, Vision change, Conjunctivae inflammation, Eyelid inflammation, Other, Redness ENT: No: Ear pain, Ear discharge, Nose pain, Nose discharge, Nose congestion, Mouth pain, Mouth swelling, Throat pain, Throat swelling, Other Respiratory: No: Cough, Dry, Shortness of breath, SOB with excertion, Wheezing, Hemoptysis, Pleuritic Pain, Sputum, Wheezing, Other Cardiovascular: No: Chest Pain, Palpitations, Orthopnea, Paroxysmal Noc. Dyspnea, Edema, Lt Headedness, Other Gastrointestinal: Abdominal Pain, Constipation; No: Nausea, Vomiting, Diarrhea, Melena, Hematochezia, Other Genitourinary: No Dysuria, No Frequency, No Incontinence, No Hematuria; Retention, Other (Ohara catheter in place) Musculoskeletal: No: other, neck pain, shoulder pain, arm pain, back pain, hand pain, leg pain, foot pain Skin: No: Rash, Lesions, Jaundice, Bruising, Other Neurological: No: Weakness, Numbness, Incoordination, Change in speech, Confusion, Seizures, Other Vital Signs Vital Signs Date Time Temp Pulse Resp B/P (MAP) Pulse Ox O2 Delivery O2 Flow Rate FiO2 06/18/24 09:00 97.7 72 17 101/57 (72) 95 97.7 06/18/24 08:00 Room Air* 0 21 Physical Exam General Appearance: Alert, Oriented X3, Cooperative, No acute distress HEENT: Atraumatic, PERRLA, EOMI, Mucous membr. moist/pink Respiratory: Clear to auscultation, Normal air movement Cardiovascular: Regular rate, Normal S1, Normal S2, No murmurs Abdominal: Normal bowel sounds, Soft, No tenderness, No hepatospenomegaly, No m asses Extremities: No clubbing, No cyanosis, No edema, Normal pulses, No tenderness/swelling, Other (Right BKA, left toes amputation.) Skin: No rashes, No breakdown, No significant lesion Neuro: Normal speech, Normal tone, Sensation intact, Cranial nerves 3-12 NL, Reflexes 2+, Other (Generalized weakness) Psych/Mental Status: Mental status NL, Mood NL ulceration distal end of left foot stump with graft placement noted. no discharge, no foul odor, no ascending cellulitis, no signs of infection noted. DP/PT left foot +1/4 left. Labs/Diagnostic Data Labs Test 06/18/24 11:05 06/17/24 05:27 06/16/24 04:21 06/15/24 03:59 Range/Units POC Glucose 188 H 70-106 mg/dl White Blood Count 9.7 4.4-10.8 10^3/uL Red Blood Count 4.13 L 4.5-5.90 10^6/uL Hemoglobin 10.9 L 13.5-17.5 g/dL Hematocrit 32.6 L 41.0-53.0 % Mean Corpuscular Volume 79.0 L 80.0-100.0 fL Mean Corpuscular Hemoglobin 26.5 L 28.0-32.0 pg Mean Corpuscular Hemoglobin Concent 33.5 32.0-36.0 g/dL Red Cell Distribution Width 19.7 H 11.8-14.3 % Platelet Count 212 140-450 10^3/uL Mean Platelet Volume 7.9 6.9-10.8 fL Neutrophils (%) (Auto) 55.2 37.0-80.0 % Lymphocytes (%) (Auto) 31.4 10.0-50.0 % Monocytes (%) (Auto) 7.4 0.0-12.0 % Eosinophils (%) (Auto) 5.1 0.0-7.0 % Basophils (%) (Auto) 0.9 0.0-2.0 % Neutrophils # (Auto) 5.3 1.6-8.6 10 ^3/uL Lymphocytes # (Auto) 3.0 0.4-5.4 10 ^3/uL Monocytes # (Auto) 0.7 0-1.3 10 ^3/uL Eosinophils # (Auto) 0.5 0-0.8 10 ^3/uL Basophils # (Auto) 0.1 0-0.2 10 ^3/uL Nucleated Red Blood Cells 0.1 % Potassium Level 3.6 3.5-5.1 mmol/L Sodium Level 140 136-145 mmol/L Chloride Level 109 H 98-107 mmol/L Carbon Dioxide Level 22 20-31 mmol/L Anion Gap 9 5-15 Blood Urea Nitrogen 38 #H 9-23 mg/dL Creatinine 1.22 0.700-1.30 mg/dL Glomerular Filtration Rate Calc 63 >90 mL/min BUN/Creatinine Ratio 31.1 H 10.0-20.0 Serum Glucose 105 74-106 mg/dL Calcium Level 8.8 8.7-10.4 mg/dL Total Bilirubin 0.3 0.2-1.0 mg/dL Aspartate Amino Transferase (AST) 19 13-40 U/L Alanine Aminotransferase (ALT) 28 7-40 U/L Alkaline Phosphatase 111 46-116 U/L Total Protein 8.3 H 5.7-8.2 g/dL Albumin 3.5 3.2-4.8 g/dL B-Type Natriuretic Peptide 42.07 0-100 pg/mL Test 06/15/24 02:03 Range/Units Urine Color Light-yellow Yellow Urine Clarity Turbid H Clear Urine pH 5.5 5.0-9.0 Urine Specific [place] 1.017 1.001-1.035 Urine Protein Trace H Negative Urine Ketones Negative Negative Urine Blood 1+ H Negative /uL Urine Nitrite Negative Negative Urine Bilirubin Negative Negative Urine Urobilinogen Normal Negative mg/dL Urine Leukocyte Esterase 3+ Negative /uL Urine RBC 3 0 - 3 /hpf Urine WBC 508 0 - 3 /hpf Urine Squamous Epithelial Cells None seen <5 /hpf Urine Bacteria None seen None Seen /hpf Urine Glucose 1+ H Normal mg/dL Microbiology Date/Time Source Procedure Growth Status 06/15/24 09:51 Blood Blood Culture - Preliminary NO GROWTH AFTER 72 HOURS OF INCUBATION. Resulted 06/15/24 02:03 Voided Urine Urine Culture - Final Methicillin Resistant S.aureus Complete Assessment Primary diagnosis: Chronic non -healing ulceration stump of the left foot. Secondary Diagnosis: DM II CHF Plan/Recommendation -the patient may be discharged from Podiatric surgical view point on Doxycycline 100mg #20 1pobid. -the patient to follow up at my office upon discharge. -all questions and concerns were answered to the patient's satisfaction. Thank you for your consultation. Plan discussed with: Patient CRISTÓBALNAT Lu DPM Jun 18, 2024 13:45
[2024-06-18 17:00] VITALS: BP 109/67; PULSE 73; RESP 16; TEMP 98.4; O2SAT 93
[2024-06-18 21:00] VITALS: BP 113/69; PULSE 66; RESP 17; TEMP 97.6; O2SAT 98
[2024-06-19 00:49] VITALS: BP 119/64; PULSE 68; RESP 16; TEMP 97.6; O2SAT 95
[2024-06-19 09:00] VITALS: BP 113/63; PULSE 75; RESP 18; TEMP 98.2; O2SAT 95
[2024-06-19] MEDS ORDERED: DOXY1CAP57 PO (11:49)
[2024-06-19 12:47] VITALS: BP 113/63; PULSE 75; RESP 18; TEMP 98.2; O2SAT 95
[2024-06-19 13:00] VITALS: BP 122/63; PULSE 70; RESP 19; TEMP 98.2; O2SAT 96
--- NOTE | 2024-06-19 18:26 | DVHDS2 ---
Discharge Summary Date of Admission Jun 15, 2024 at 06:16 Date of Discharge: Jun 19, 2024 Labs/Diagnostic Data: Laboratory Results Test 06/19/24 12:15 06/17/24 05:27 06/16/24 04:21 06/15/24 03:59 POC Glucose 144 mg/dl (70-106) White Blood Count 9.7 10^3/uL (4.4-10.8) Red Blood Count 4.13 10^6/uL (4.5-5.90) Hemoglobin 10.9 g/dL (13.5-17.5) Hematocrit 32.6 % (41.0-53.0) Mean Corpuscular Volume 79.0 fL (80.0-100.0) Mean Corpuscular Hemoglobin 26.5 pg (28.0-32.0) Mean Corpuscular Hemoglobin Concent 33.5 g/dL (32.0-36.0) Red Cell Distribution Width 19.7 % (11.8-14.3) Platelet Count 212 10^3/uL (140-450) Mean Platelet Volume 7.9 fL (6.9-10.8) Neutrophils (%) (Auto) 55.2 % (37.0-80.0) Lymphocytes (%) (Auto) 31.4 % (10.0-50.0) Monocytes (%) (Auto) 7.4 % (0.0-12.0) Eosinophils (%) (Auto) 5.1 % (0.0-7.0) Basophils (%) (Auto) 0.9 % (0.0-2.0) Neutrophils # (Auto) 5.3 10 ^3/uL (1.6-8.6) Lymphocytes # (Auto) 3.0 10 ^3/uL (0.4-5.4) Monocytes # (Auto) 0.7 10 ^3/uL (0-1.3) Eosinophils # (Auto) 0.5 10 ^3/uL (0-0.8) Basophils # (Auto) 0.1 10 ^3/uL (0-0.2) Nucleated Red Blood Cells 0.1 % Potassium Level 3.6 mmol/L (3.5-5.1) Sodium Level 140 mmol/L (136-145) Chloride Level 109 mmol/L (98-107) Carbon Dioxide Level 22 mmol/L (20-31) Anion Gap 9 (5-15) Blood Urea Nitrogen 38 mg/dL (9-23) Creatinine 1.22 mg/dL (0.700-1.30) Glomerular Filtration Rate Calc 63 mL/min (>90) BUN/Creatinine Ratio 31.1 (10.0-20.0) Serum Glucose 105 mg/dL (74-106) Calcium Level 8.8 mg/dL (8.7-10.4) Total Bilirubin 0.3 mg/dL (0.2-1.0) Aspartate Amino Transferase (AST) 19 U/L (13-40) Alanine Aminotransferase (ALT) 28 U/L (7-40) Alkaline Phosphatase 111 U/L (46-116) Total Protein 8.3 g/dL (5.7-8.2) Albumin 3.5 g/dL (3.2-4.8) B-Type Natriuretic Peptide 42.07 pg/mL (0-100) Test 06/15/24 02:03 Urine Color Light-yellow (Yellow) Urine Clarity Turbid (Clear) Urine pH 5.5 (5.0-9.0) Urine Specific [place] 1.017 (1.001-1.035) Urine Protein Trace (Negative) Urine Ketones Negative (Negative) Urine Blood 1+ /uL (Negative) Urine Nitrite Negative (Negative) Urine Bilirubin Negative (Negative) Urine Urobilinogen Normal mg/dL (Negative) Urine Leukocyte Esterase 3+ /uL (Negative) Urine RBC 3 /hpf (0 - 3) Urine WBC 508 /hpf (0 - 3) Urine Squamous Epithelial Cells None seen /hpf (<5) Urine Bacteria None seen /hpf (None Seen) Urine Glucose 1+ mg/dL (Normal) Other Laboratory Tests 06/17/24 05:27 06/16/24 04:21 Brief Hx & Hospital Course: Final diagnoses: UTI with MRSA 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, 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 Type 2 diabetes History of heart failure with preserved ejection fraction COPD Peripheral vascular disease Sepsis 72-year-old male with a history of diabetes and heart failure came with a chief complaint of abdominal pain and urinary retention He has a Ohara catheter inserted and the UA showed a UTI but it grew staph aureus MRSA He because of the MRSA in the urine we did an echocardiogram which showed no evidence of endocarditis Blood culture was done was also negative The patient has wounds on his legs, he has a partial amputation of the left foot He has a superficial wound on his lateral aspect of the left leg He gets wound care and podiatry care from Dr. 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 Ghosh tomorrow Medications: Doxycycline 100 mg bid x 10 days Discharge Statement: "Patient was advised to return to the ER or call 911 if any headaches, dizziness, shortness of breath, chest pain, abdominal pain, bleeding, fevers, or worsening of medical condition. Patient was counseled about treatment plan, medications, possible side effects, patientverbalized understanding. All questions were answered to the best of my ability. 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
== END 2024-06-19 15:30 | disposition home or self-care (01) | DRG 872 ==
LOC: ER 01:38 → EDBD 01:38 → OVERFLOW 06:16 → WEST WING 14:32
PROVIDERS: ADMIT Nurse Practitioner Family; ATTEND Internal Medicine Geriatric Medicine
DX: A41.9 Sepsis, unspecified organism (principal); N30.01 Acute cystitis with hematuria; I50.32 Chronic diastolic (congestive) heart failure; E11.65 Type 2 diabetes mellitus with hyperglycemia; K59.09 Other constipation; B95.62 Methicillin resistant Staphylococcus aureus infection as the cause of diseases classified elsewhere; E11.51 Type 2 diabetes mellitus with diabetic peripheral angiopathy without gangrene; E11.621 Type 2 diabetes mellitus with foot ulcer; L97.529 Non-pressure chronic ulcer of other part of left foot with unspecified severity; N40.1 Benign prostatic hyperplasia with lower urinary tract symptoms; R33.8 Other retention of urine; J44.9 Chronic obstructive pulmonary disease, unspecified; Z89.611 Acquired absence of right leg above knee; Z89.511 Acquired absence of right leg below knee; Z82.49 Family history of ischemic heart disease and other diseases of the circulatory system
CPT/HCPCS: 36415; 80048; 80053; 81001; 82962; 83880; 84132; 85025; 87040; 87086; 87088; 87186; 93005; 93306; 96365; 96372; 99291; G0378; J0692; J1815